=== PATIENT | female | born 1985 | race African-American/Black ===

== ENCOUNTER 2023-09-08 12:37 | Emergency (ER) | payer MEDICAID ==
[~2023-09-08] VITALS: Ht 167.6 cm; Wt 84.0 kg
[2023-09-08 12:41] VITALS: PULSE 78
[2023-09-08 12:49] VITALS: BP 124/75; RESP 18; O2SAT 98
[2023-09-08] MEDS ORDERED: ACETAMINOPHEN 325MG TABLET PO ONE (13:30)
[2023-09-08 13:52] VITALS: TEMP 98.5
[2023-09-08] MEDS ORDERED: KETOROLAC 30MG/ML VIAL IM NR (16:15)
[2023-09-08] MEDS ORDERED: IBUP-2029 MT (16:58)
== END 2023-09-08 17:53 | disposition home or self-care (01) ==
LOC: ER 12:37
DX: R51.9 Headache, unspecified (principal)
CPT/HCPCS: 81025; 70450; 96372; 99285; J1885; Z7610 ×2

== ENCOUNTER 2025-04-23 17:15 | Emergency (ER) | payer MEDICAID ==
[~2025-04-23] VITALS: Ht 167.6 cm; Wt 73.0 kg
[~2025-04-23 17:15] MED LIST: IBUP-2029 MT
[2025-04-23 17:18] VITALS: BP 126/82; PULSE 66; RESP 18; TEMP 36.7; O2SAT 100
[2025-04-23] MEDS ORDERED: TETANUS, DIPHTHERIA, PERTUSSIS VAC/PF 0.5ML (>10YR OLD) IM ONE (18:15)
[2025-04-23] MEDS ORDERED: BACITRACIN ZINC OINT UDPKT TOP ONE (18:15)
[2025-04-23] MEDS ORDERED: LIDOCAINE HCL/PF 1% 10 MG/ML 5ML VIAL INFIL ONE (18:15)
== END 2025-04-23 22:06 | disposition left against medical advice (07) ==
LOC: ER 17:15
DX: S81.811A Laceration without foreign body, right lower leg, initial encounter (principal); Z53.21 Procedure and treatment not carried out due to patient leaving prior to being seen by health care provider; X58.XXXA Exposure to other specified factors, initial encounter; Y93.89 Activity, other specified; Y92.89 Other specified places as the place of occurrence of the external cause; Y99.8 Other external cause status